=== PATIENT | male | born 1975 | race Caucasian/White ===

== ENCOUNTER 2024-07-29 11:07 | Outpatient (CLI) | payer OTHER, SELFPAY | END 2024-07-29 11:08 | disposition home or self-care (01) | LOC: NFLDREF 11:08 | PROVIDERS: PCP Family Medicine; Visit Provider Family Medicine | DX: I10 Essential (primary) hypertension (principal) | CPT/HCPCS: 80048 ==

== ENCOUNTER 2024-08-03 05:59 | Day surgery (SDC) | payer OTHER, SELFPAY ==
[2024-08-03] VITALS (21 sets, daily range): BP systolic 97–140; BP diastolic 45–101; PULSE 73–89; RESP 14–22; TEMP 36.1–36.4; O2SAT 94–99; BMI 38.3
[2024-08-03] MEDS: OXYCODONE (CR) 10 MG TAB.ER.12H PO (06:04)
[2024-08-03] MEDS: LACTATED RINGERS 1000 ML 1,000 ML 100 ML IV ×3 (06:05→09:39)
[2024-08-03] MEDS: ACETAMINOPHEN 500 MG TABLET 1000 MG PO ×2 (07:15→13:20)
[2024-08-03] MEDS: fentaNYL 100 MCG/2 ML inj IVP (07:15)
[2024-08-03] MEDS: CELECOXIB 200 MG CAPSULE PO (07:15)
[2024-08-03] MEDS: MIDAZOLAM HCL 1 MG/ML inj IVP (07:15)
--- NOTE | 2024-08-03 07:15 | CRLHL7_ITS ---
For Patients: As a result of the Century Cures Act, medical imaging exams and procedure reports are released immediately into your electronic medical record. You may view this report before your referring provider. If you have questions, please contact your health care provider. Indication: Left total hip arthroplasty. Technique: Two fluoroscopic AP views of the left hip during a left hip arthroplasty are submitted. Comparison: Pelvis radiograph 05/17/2024. Findings/Impression: A noncemented left total hip arthroplasty has been placed. Components appear well-positioned. There is a tip of a metallic clamp superimposed over the left proximal thigh. 93.4 seconds of fluoroscopy time was utilized. Dictated by Rocky Mao MD @ 08/04/2024 10:15:56 AM (Electronically Signed)
[2024-08-03] MEDS: SODIUM CHLORIDE 0.9 % (FLUSH) 10 ML SYRINGE IVF (07:25)
--- NOTE | 2024-08-03 07:28 | SUR.PREOP ---
TIME?OUT:?0714 PT/RN/MDA?VERIFICATION?OF?SURGICAL?SITE,?PROCEDURE,?AND?CONSENT OBTAINED?PRIOR?TO?INVASIVE?PROCEDURE.
[2024-08-03] MEDS: TRANEXAMIC ACID 100 MG/ML INJ 1000 MG IV (07:55)
[2024-08-03] MEDS: CEFAZOLIN 1 GM inj IVP (07:57)
--- NOTE | 2024-08-03 08:27 | P.NB_ITS ---
Nerve Block Nerve Block Time Seen by Provider: 07:15 Date Seen: 08/03/24 Type of block requested by surgeon for post-operative analgesia: ROSA/LFCN Side: left Time out performed: Yes Verification of patient name: Yes Verification of date of : Yes Site marking: site marked Name of person performing procedure: Malick Continuous monitoring Was continuous monitoring of O2 sat, B/P, registered nurse cardiac telemetry, recorded every 15 minutes?: Yes Procedure Checklist: sterile prep, needles and gloves Ultrasound guided. Images saved: Yes Medications given in 5ml increments after negative aspiration: Ropivicaine %: 0.5 mL: 30 Needle gauge: 20 Precedex (mcg): 25 Patient tolerated procedure well: Yes Additional comments: Needle noted below psoas tendon needle noted adjacent to LFCN Block Charges Block Charge (with Pro Fee): Other Periph Nerve Block Use of Ultrasound Machine for Block: Yes- US Guidance/pain block
--- NOTE | 2024-08-03 08:28 | P.ANES_ITS ---
Anesthesia Charges Start Date/Time Anesthesia Start Date: 08/03/24 Anesthesia Start Time: 07:26 Stop Date/Time Anesthesia Stop Date: 08/03/24 Anesthesia Stop Time: 10:22 Coding CPT Codes CPT Codes: ANESTH HIP ARTHROPLASTY - 26653 ([id number]) P3 - PATIENT W/SEVERE SYS DISEASE, QK - MANAGER OF FINANCIAL 2-4 CNCRNT ANES PROC, QX - FEATHEREDGE MACHINE OPERATOR SVC W/ MD MED DIRECTION
--- NOTE | 2024-08-03 08:28 | W.ANESCHARGE ---
Anesthesia Charges Start Date/Time Anesthesia Start Date: 08/03/24 Anesthesia Start Time: 07:26 Stop Date/Time Anesthesia Stop Date: 08/03/24 Anesthesia Stop Time: 10:22 Coding CPT Codes CPT Codes: ANESTH HIP ARTHROPLASTY - 91340 ([id number]) P3 - PATIENT W/SEVERE SYS DISEASE, QK - MISSILE FACILITIES REPAIRER 2-4 CNCRNT ANES PROC, QX - CELL ROOM OPERATOR SVC W/ MD MED DIRECTION
--- NOTE | 2024-08-03 09:40 | CRLHL7_ITS ---
For Patients: As a result of the Cures Act, medical imaging exams and procedure reports are released immediately into your electronic medical record. You may view this report before your referring provider. If you have questions, please contact your health care provider. Indication: Postop total hip replacement. Technique: AP pelvis and cross-table lateral view of the left hip. Comparison: Pelvis and left hip radiograph 05/17/2024. Findings: A noncemented left total hip arthroplasty has been placed. Components appear well-positioned. There are postoperative changes within the left hip soft tissues. The right hip joint space is preserved. No other interval change is identified. Impression: Status post left total hip arthroplasty. Dictated by Rocky Mao MD @ 08/04/2024 10:45:20 AM (Electronically Signed)
--- NOTE | 2024-08-03 09:44 | PM.ORPRC ---
Procedure Note Date of procedure: 08/03/24 Procedure: PREOPERATIVE DIAGNOSIS: Left hip osteoarthritis POSTOPERATIVE DIAGNOSIS: Left hip osteoarthritis NAME OF OPERATION: Left total hip arthroplasty SURGEON: Vivek Whatley MD ASSEMBLER MOVEMENT: Carolynn Swartz PA-C, TATY Chen IMPLANTS: 1. [employer] # 54 sector ingrowth cup 2. 36 x 54 +4 neutral polyethylene 3. Actis # 7 standard collared ingrowth stem 4. 36 -2 ceramic femoral head ANESTHESIA: General ESTIMATED BLOOD LOSS: 900 cc COMPLICATIONS: None SPECIMENS: None DRAINS: None PREOPERATIVE ANTIBIOTICS: Ancef 3 grams INDICATIONS: The patient is a 48-year-old with a history of severe, unrelenting left hip pain secondary to osteonecrosis. Despite appropriate nonoperative management, including activity modification, use of an assist device, anti-inflammatories, and [id number] pain medication, they continue to have pain and disability. Operative intervention was offered. The risks, benefits and expected outcomes were discussed in detail. These included but were not limited to: Infection, bleeding, injury to blood vessel or nerve, venous thromboembolism. All questions were answered to their satisfaction. Use of an horticultural nursery assistant was necessary throughout the case for patient positioning and safety, soft tissue retraction and closure. A modifier 22 should be added to this case. The patient weighs 121 kg with a BMI of 38. The quads muscles were huge and the pelvis was wide. This made exposure quite difficult and added a significant amount of time to complete the case. PROCEDURE: The patient was placed supine on the [place] table. General anesthesia was administered. The horticultural nursery assistant made sure the patient was properly positioned. The left hip was prepped and draped in the usual sterile fashion. The image intensifier was brought in for a perfect AP pelvis and a perfect double tear drop AP view of each hip which were used for intraoperative templating with our fluoroscopic guide. An oblique incision was made 3 cm distal and 3 cm lateral to the anterior superior iliac spine. The horticultural nursery assistant retracted the soft tissues to protect them. Subcutaneous dissection was taken with electrocautery to the superficial fascia. The fascia was divided in line with the incision. Blunt dissection was carried medially to the tensor fascia severino and sartorius interval. Deep dissection was carried with electrocautery. The circumflex vessels were cauterized and divided. The capsule was exposed and then divided in a T-fashion, tagged with #1 FiberWire sutures. Retractors were placed in the joint, held by the horticultural nursery assistant. The corkscrew was placed in the femoral head. The neck cut was made in the subcapital region. We made a second neck cut more distal. The napkin ring of bone was removed. The femoral head was removed intact. Acetabular retractors were placed, held by the horticultural nursery assistant. The labrum was sharply debrided. The capsule was released. The 43 mm reamer was used to the true medial wall. We then enlarged in 2 mm increments using the image intensifier for our reamer placement. We impacted the cup which had excellent purchase. We placed the polyethylene. Attention was then turned to the proximal femur. The limb was placed in 140 degrees of external rotation, maximum extension and adduction. A significant amount of time was spent releasing the capsule to allow us to deliver the femur into the wound and complete the femoral side safely. Retractors were held by the horticultural nursery assistant throughout the femoral preparation. The hand box coverer and canal finder were used. Broaches were used to a stable size. The calcar reamer was used. Trial components were placed. The hip was reduced and was found to be stable with appropriate soft tissue tension. Length and offset had been nicely restored using the image intensifier and our fluoroscopic guide. Trial components were removed. The stem was impacted. We placed the femoral head. Again, the hip was reduced and was found to be stable with appropriate soft tissue tension. Length and offset had been nicely restored. The horticultural nursery assistant did a three minute dilute Betadine solution soak. The horticultural nursery assistant irrigated the wound with 3 liters of normal saline via pulse lavage. The horticultural nursery assistant repaired the anterior capsule with a #1 Vicryl and our previously placed Ethibond sutures. The horticultural nursery assistant closed the fascia over the tensor fascia severino with a #1 PDO Stratafix, subcutaneous tissues with 2-0 Vicryl, skin with a running 3-0 Stratafix and glue. A dry dressing was applied by the horticultural nursery assistant. Sponge and needle counts were correct x 2. The patient tolerated the procedure well; there were no apparent complications. They were awakened and extubated in the operating room, sent to the Post-Anesthesia Care Unit in satisfactory condition. PLAN: 1. The patient will be mobilized with physical therapy, weight-bearing as tolerates 2. Since the patient smokes, Xarelto x 35 days will be used for DVT prophylaxis 3. The patient will be discharged once medically appropriate
[2024-08-03] MEDS: LACTATED RINGERS 1000 ML 1,000 ML 75 ML IV (10:20)
--- NOTE | 2024-08-03 10:22 | P.ANES_ITS ---
Anesthesia Charges Start Date/Time Anesthesia Start Date: 08/03/24 Anesthesia Start Time: 07:26 Stop Date/Time Anesthesia Stop Date: 08/03/24 Anesthesia Stop Time: 10:22 Coding CPT Codes CPT Codes: ANESTH HIP ARTHROPLASTY - 77335 ([id number]) P3 - PATIENT W/SEVERE SYS DISEASE, QK - GRAPHIC COORDINATOR 2-4 CNCRNT ANES PROC, QX - POLICY INTERN SVC W/ MD MED DIRECTION
--- NOTE | 2024-08-03 10:22 | W.ANESCHARGE ---
Anesthesia Charges Start Date/Time Anesthesia Start Date: 08/03/24 Anesthesia Start Time: 07:26 Stop Date/Time Anesthesia Stop Date: 08/03/24 Anesthesia Stop Time: 10:22 Coding CPT Codes CPT Codes: ANESTH HIP ARTHROPLASTY - 55093 ([id number]) P3 - PATIENT W/SEVERE SYS DISEASE, QK - DIRECTOR OF ASSESSMENT 2-4 CNCRNT ANES PROC, QX - AIR LIAISON AND SPECIAL STAFF SVC W/ MD MED DIRECTION
[2024-08-03] MEDS: fentaNYL 100 MCG/2 ML inj 50 MCG IVP ×2 (10:31→10:36)
[2024-08-03] MEDS: CYCLOBENZAPRINE HCL 10 MG TABLET PO (11:03)
[2024-08-03] MEDS: hydrOXYzine pamoate 25 MG CAPSULE PO (11:30)
[2024-08-03] MEDS: OXYCODONE 5 MG TABLET PO (11:32)
[2024-08-03] MEDS: METOCLOPRAMIDE HCL 5 MG/ML INJ 10 MG IVP (12:50)
--- NOTE | 2024-08-03 16:03 | SUR.PHASEII ---
Patients vital signs stable throughout sameday recovery. Patient passed OT and PT evaluations. Patient voided before discharge. No dizziness reported on ambulation. Rates pain a 2 at discharge.
== END 2024-08-03 15:20 | disposition home or self-care (01) ==
LOC: OR 06:01
PROVIDERS: PCP Family Medicine; Visit Provider Orthopaedic Surgery
PROC: (CPT 27130; principal; 2024-08-03 07:15)
DX: M16.12 Unilateral primary osteoarthritis, left hip (principal); G89.18 Other acute postprocedural pain; M87.850 Other osteonecrosis, pelvis; G47.33 Obstructive sleep apnea (adult) (pediatric); K21.9 Gastro-esophageal reflux disease without esophagitis; I10 Essential (primary) hypertension; K76.0 Fatty (change of) liver, not elsewhere classified; E66.9 Obesity, unspecified; Z68.38 Body mass index [BMI] 38.0-38.9, adult
CPT/HCPCS: 27130; 01214; 36415; 64450; 73501; 76000; 76942; 86850; 86900; 86901; 97110; 97161; 97165; 97530; A9270; C1776; J0690; J1100; J1171; J2250; J2405; J2704; J2710; J2765; J2795; J3010; J3490; J7120

== ENCOUNTER 2024-11-22 12:08 | Outpatient (CLI) | payer OTHER, SELFPAY | END 2024-11-22 12:09 | disposition home or self-care (01) | LOC: NFLDREF 11-25 11:59 | PROVIDERS: PCP Family Medicine; Referring Provider Family Medicine; Visit Provider Family Medicine | DX: E78.2 Mixed hyperlipidemia (principal); E11.9 Type 2 diabetes mellitus without complications; R68.89 Other general symptoms and signs | CPT/HCPCS: 80053; 80061 ==

== ENCOUNTER 2025-01-31 11:03 | Outpatient (CLI) | payer OTHER, SELFPAY | END 2025-01-31 11:04 | disposition home or self-care (01) | PROVIDERS: PCP Family Medicine; Visit Provider Family Medicine | DX: I10 Essential (primary) hypertension (principal); G62.9 Polyneuropathy, unspecified; Z13.6 Encounter for screening for cardiovascular disorders; R63.5 Abnormal weight gain; Z68.41 Body mass index [BMI] 40.0-44.9, adult | CPT/HCPCS: 80053; 80061; 82607; 84443 ==

== ENCOUNTER 2025-04-05 06:24 | Outpatient (CLI) | payer OTHER, SELFPAY ==
--- NOTE | 2025-04-05 08:16 | P.ANES_ITS ---
Anesthesia Charges Start Date/Time Anesthesia Start Date: 04/05/25 Anesthesia Start Time: 07:25 Stop Date/Time Anesthesia Stop Date: 04/05/25 Anesthesia Stop Time: 08:15 Coding CPT Codes CPT Codes: ANES LWR INTST NDSC NOS - 29312 ([id number]) P2 - PATIENT W/MILD SYST DISEASE, QZ - INTERNET MARKETING SPECIALIST SVC W/O RABIES INSPECTOR BY
--- NOTE | 2025-04-05 08:16 | W.ANESCHARGE ---
Anesthesia Charges Start Date/Time Anesthesia Start Date: 04/05/25 Anesthesia Start Time: 07:25 Stop Date/Time Anesthesia Stop Date: 04/05/25 Anesthesia Stop Time: 08:15 Coding CPT Codes CPT Codes: ANES LWR INTST NDSC NOS - 55369 ([id number]) P2 - PATIENT W/MILD SYST DISEASE, QZ - RAG INSPECTOR SVC W/O MECHANICAL FIELD ENGINEER BY
== END 2025-04-05 06:25 | disposition home or self-care (01) ==
LOC: OP CLINIC 06:26
PROVIDERS: PCP Family Medicine; Visit Provider Surgery
DX: Z12.11 Encounter for screening for malignant neoplasm of colon (principal); R19.5 Other fecal abnormalities; D12.3 Benign neoplasm of transverse colon; D12.4 Benign neoplasm of descending colon; K57.30 Diverticulosis of large intestine without perforation or abscess without bleeding
CPT/HCPCS: 00811; 00812; 45385; J2704; J3490